=== PATIENT | female | born 1990 | race Caucasian/White ===

== ENCOUNTER → 2018-09-09 20:29 | Outpatient (CLI) | payer OTHER, SELFPAY | PROVIDERS: Visit Provider Physician Assistant | DX: R35.0 Frequency of micturition (principal) | CPT/HCPCS: 87077; 87086; 87186 ==

== ENCOUNTER → 2020-01-26 17:08 | Outpatient (CLI) | payer OTHER, SELFPAY | PROVIDERS: Visit Provider Physician Assistant | DX: R30.0 Dysuria (principal) | CPT/HCPCS: 87077; 87086; 87186 ==

== ENCOUNTER → 2021-04-28 | Outpatient (CLI) | payer OTHER, SELFPAY | PROVIDERS: Referring Provider Internal Medicine; Visit Provider Internal Medicine | DX: Z23 Encounter for immunization (principal) | CPT/HCPCS: 90471; 90686 ==

== ENCOUNTER → 2021-08-03 13:09 | Outpatient (CLI) | payer OTHER, MEDICAID, SELFPAY | PROVIDERS: Referring Provider Nurse Practitioner Family; Visit Provider Nurse Practitioner Family | DX: J02.9 Acute pharyngitis, unspecified (principal) | CPT/HCPCS: 87070; 87880 ==

== ENCOUNTER → 2021-10-20 16:20 | Outpatient (CLI) | payer OTHER, MEDICAID, SELFPAY | PROVIDERS: Visit Provider Nurse Practitioner Family | DX: R30.0 Dysuria (principal) | CPT/HCPCS: 81002; 87077; 87086; 87186 ==

== ENCOUNTER → 2022-04-07 13:01 | Outpatient (CLI) | payer OTHER, MEDICAID, SELFPAY | PROVIDERS: Visit Provider Nurse Practitioner Critical Care Medicine | DX: N39.0 Urinary tract infection, site not specified (principal) | CPT/HCPCS: 81002; 87077; 87086; 87186 ==

== ENCOUNTER → 2022-04-30 17:38 | Outpatient (CLI) | payer OTHER, MEDICAID, SELFPAY | PROVIDERS: Visit Provider Nurse Practitioner Family | DX: R30.0 Dysuria (principal) | CPT/HCPCS: 81002; 87077; 87086; 87186 ==

== ENCOUNTER 2023-05-29 22:22 | Emergency (ER) | payer OTHER, MEDICAID, SELFPAY ==
[2023-05-29 22:25] VITALS: BP 121/69; PULSE 66; RESP 18; TEMP 36.6; O2SAT 98; BMI 21.4
--- NOTE | 2023-05-29 22:35 | ED_ITS ---
HPI - Wound/Laceration General Chief Complaint: Wound/Laceration Stated Complaint: Rt thumb injury Time Seen by Provider: 05/29/23 22:29 Source: patient Mode of arrival: Ambulatory History of Present Illness HPI narrative: 32-year-old female presents for accidental avulsion injury to the knuckle of her right index finger. Patient was using a mandoline and accidentally sliced the tip of her knuckle off. She was unable to control the bleeding and decided to present for evaluation. She has had a tetanus shot within the last 5 years. Related Data Home Medications Medication Instructions Recorded Confirmed control pills PO 09/09/18 03/02/23 bupropion HCl 150 mg 24 hr tablet, 150 mg PO QAM 09/09/18 03/02/23 extended release (Wellbutrin XL) Previous Rx's Medication Instructions Recorded ondansetron 4 mg disintegrating 4 mg PO Q8H PRN nausea and 04/07/22 tablet vomiting #10 tabs Allergies Allergy/AdvReac Type Severity Reaction Status Date / Time ibuprofen Allergy Verified 03/02/23 10:39 tree nut Allergy Verified 03/02/23 10:39 Review of Systems Review of Systems Narrative: Negative except as noted above. Patient History Medical History UTI (urinary tract infection) Social History Smoking Status: Never smoker Smoking Status: Never smoker alcohol intake frequency: holidays/special occasions only Substance Use Type: does not use Exam Initial Vital Signs Initial Vital Signs: Vital Signs Temperature 97.9 F 05/29/23 22:25 Pulse Rate 66 05/29/23 22:25 Respiratory Rate 18 05/29/23 22:25 Blood Pressure 121/69 05/29/23 22:25 Pulse Oximetry 98 05/29/23 22:25 Oxygen Delivery Method Room Air 05/29/23 22:25 Const: Awake, alert, no acute distress, nontoxic appearing MSK: full range of motion, pulses equal, sensation intact, no tendon injury Skin: Warm, Dry, 1x1.5 cm avulsion injury over PIP knuckle on R index finger with venous bleeding Neuro: AO x3, CN II-XII grossly intact, moves all extremities Course Orders Ordered: Discontinued Medications Lidocaine/Prilocaine (Lidocaine/Prilocaine 5 Gm) 5 gm TOP NOW ONE Stop: 05/29/23 22:36 Last Admin: 05/29/23 22:37 Dose: 5 gm Documented By: ELIZABETH Vital Signs Vital signs: Vital Signs - 8 hr 05/29/23 22:25 05/29/23 23:30 Temperature 97.9 F 97.6 F Pulse Rate 66 74 Respiratory Rate 18 16 Blood Pressure 121/69 118/66 Pulse Oximetry 98 99 Oxygen Delivery Method Room Air Room Air MDM - Wound/Laceration Differential Diagnosis Differential diagnosis: Likely laceration, abrasion and avulsion of skin MDM Narrative Medical decision making narrative: Well-appearing patient with avulsion injury to the index finger as noted above. Tendon function intact, due to the avulsion nature of the injury as well as placement over a knuckle not a good candidate for sutures. Copiously irrigated, numbing cream applied. A compressive bandage applied with hemostasis. Patient was counseled on wound care instructions and discharged with additional supplies. Discharge Plan Departure Patient Disposition: Home Clinical Impression: Avulsion of skin of thumb Instructions: DI for Avulsion Laceration (Not Requiring Sutures) Prescriptions: No Action bupropion HCl [Wellbutrin XL] 150 mg tablet extended release 24 hr 150 mg PO QAM control pills PO ondansetron 4 mg tablet,disintegrating 4 mg PO Q8H PRN (Reason: nausea and vomiting) Qty: 10 0RF Referrals: Miscellaneous,Doctor, MD [Primary Care Provider] - Stand Alone Forms: Patient Portal/API
[2023-05-29] MEDS: LIDOCAINE/PRILOCAINE 5 GM TOP (22:37)
[2023-05-29 23:30] VITALS: BP 118/66; PULSE 74; RESP 16; TEMP 36.4; O2SAT 99
== END 2023-05-29 23:31 | disposition home or self-care (01) ==
PROVIDERS: Emergency Provider Emergency Medicine
DX: S61.200A Unspecified open wound of right index finger without damage to nail, initial encounter (principal); W45.8XXA Other foreign body or object entering through skin, initial encounter
CPT/HCPCS: 99282; 99283